=== PATIENT | male | born 1950 | race Caucasian/White ===

== ENCOUNTER → 2018-01-22 | Outpatient (CLI) | payer MEDICARE ==
[~2018-01-22] MED LIST: ASCO-96 PO; ASPI-496 PO; ATOR-2 PO; CARV12.52 PO; CHOL100012 PO; KRIL1CAP24 PO; LISI-170 PO; OMEP20TA62 PO; OXYB10TA PO; OXYC1TAB7 PO; VITA150T PO
[2018-01-22 09:52] LABS: ALBUMIN 3.6 g/dL (3.4-5.0); ANION GAP 5 mmol/L (5-15); CHLORIDE 108 mmol/L (98-107)
[2018-01-22 09:54] LABS: MICROSCOPIC INDICATED
[2018-01-22 09:55] LABS: ALANINE AMINOTRANSFERASE 21 U/L (12-78); ALKALINE PHOSPHATASE 88 U/L (45-117); BILIRUBIN,TOTAL 0.8 mg/dL (0.2-1.0); TOTAL PROTEIN 7.2 g/dL (6.4-8.2)
== END | disposition home or self-care (01) ==
LOC: STAR 08:31
PROVIDERS: ATTEND Urology
DX: Z01.818 Encounter for other preprocedural examination (principal); C67.9 Malignant neoplasm of bladder, unspecified; I49.3 Ventricular premature depolarization; I21.09 ST elevation (STEMI) myocardial infarction involving other coronary artery of anterior wall
CPT/HCPCS: 36415; 80053; 81001; 87086; 93005

== ENCOUNTER 2018-02-01 12:34 | Observation (INO) | payer MEDICARE ==
[~2018-02-01] VITALS: Ht 172.7 cm; Wt 85.9 kg
[2018-02-01] MEDS ORDERED: LACTATED RINGERS 1,000 ML IV SCH (12:57)
[2018-02-01] MEDS ORDERED: MITOMYCIN INTVESIC SCH (13:30)
[2018-02-01] MEDS ORDERED: SODIUM CHLORIDE 0.9% INTVESIC SCH (13:30)
[2018-02-01] MEDS ORDERED: FENTANYL PF 250 MCG/5ML ONE (14:36)
[2018-02-01] MEDS ORDERED: NEOSTIGMINE 1 MG/ML, 10ML ONE (15:01)
[2018-02-01] MEDS ORDERED: DEXAMETHASONE 4 MG/ML, 1ML ONE (15:01)
[2018-02-01] MEDS ORDERED: SUCCINYLCHOLINE 20 MG/ML, 10ML ONE (15:01)
[2018-02-01] MEDS ORDERED: PROPOFOL 10 MG/ML, 20ML ONE (15:01)
[2018-02-01] MEDS ORDERED: ROCURONIUM 10MG/ML,5ML ONE (15:01)
[2018-02-01] MEDS ORDERED: ONDANSETRON 2MG/ML, 2ML ONE (15:01)
[2018-02-01] MEDS ORDERED: CEFAZOLIN 1,000 MG ONE (15:01)
[2018-02-01] MEDS ORDERED: GLYCOPYRROLATE 0.2MG/1ML, 5ML ONE (15:01)
[2018-02-01] MEDS ORDERED: FENTANYL PF 100 MCG/2ML IV PRN (17:00)
[2018-02-01] MEDS ORDERED: LABETALOL 5MG/ML, 20ML IV PRN (17:00)
[2018-02-01] MEDS ORDERED: ACETAMINOPHEN 325 MG TABLET PO PRN (17:00)
[2018-02-01] MEDS ORDERED: MORPHINE SULFATE 4 MG/ML, 1ML IVPush PRN (17:00)
[2018-02-01] MEDS ORDERED: PROMETHAZINE 25 MG SUPP PR PRN (17:00)
[2018-02-01] MEDS ORDERED: PROMETHAZINE 25 MG/ML, 1ML IV PRN (17:00)
[2018-02-01] MEDS ORDERED: ONDANSETRON ODT 8 MG PO PRN (17:00)
[2018-02-01] MEDS ORDERED: ONDANSETRON 2MG/ML, 2ML IV PRN (17:00)
[2018-02-01] MEDS ORDERED: HYDROmorphone 1 MG/ML, 1ML IV PRN (17:00)
[2018-02-01] MEDS ORDERED: OXYcodone 5 MG/5 ML ORAL.SOL UDC PO PRN (17:00)
[2018-02-01] MEDS ORDERED: ONDANSETRON 2MG/ML, 2ML IVPush PRN (18:00)
[2018-02-01] MEDS ORDERED: OPIUM/BELLADONNA SUPP.RECT 16.2-30 MG PR PRN (18:00)
[2018-02-01] MEDS ORDERED: OXYcodone/APAP 5/325MG TABLET PO PRN (18:00)
[2018-02-01] MEDS ORDERED: OXYcodone 5 MG/5 ML ORAL.SOL UDC ONE (19:01)
[2018-02-01] MEDS ORDERED: CIPROFLOXACIN/PMX 400MG/200ML 200 ML IVPB SCH (20:00)
[2018-02-01 21:00] VITALS: BP 126/83
[2018-02-01] MEDS ORDERED: ATORVASTATIN 80 MG TABLET PO SCH (21:00)
[2018-02-01] MEDS: CARVEDILOL 12.5 MG TABLET PO SCH (21:13)
[2018-02-01] MEDS: POTASSIUM CHLORIDE 20 MEQ in D5%-0.9% NACL 1,000 ML IV SCH (21:13)
[2018-02-02] VITALS: BP 119/77
[2018-02-02 04:12] VITALS: BP 112/73
[2018-02-02 05:06] LABS: ANION GAP 6 mmol/L (5-15); CALCIUM 8.4 mg/dL (8.5-10.1); CHLORIDE 107 mmol/L (98-107); CREATININE 1.09 mg/dL (0.7-1.3)
[2018-02-02] MEDS: CARVEDILOL 12.5 MG TABLET PO SCH (05:56)
[2018-02-02] MEDS ORDERED: OMEPRAZOLE 20 MG CAPSULE.DR PO SCH (07:30)
[2018-02-02] MEDS: POTASSIUM CHLORIDE 20 MEQ in D5%-0.9% NACL 1,000 ML IV SCH (07:45)
[2018-02-02 07:49] VITALS: BP 94/63
[2018-02-02] MEDS ORDERED: OXYBUTYNIN CHLORIDE 5 MG TABLET PO SCH (09:00)
[2018-02-02] MEDS ORDERED: CHOLECALCIFEROL 1,000 UNIT TABLET PO SCH (09:00)
[2018-02-02] MEDS ORDERED: LISINOPRIL 20 MG TABLET PO SCH (09:00)
== END 2018-02-02 11:24 | disposition home or self-care (01) ==
LOC: OUT 12:34 → ORIP 17:45 → 4NOR 19:30
PROVIDERS: ADMIT Urology; ATTEND Urology
DX: C67.8 Malignant neoplasm of overlapping sites of bladder (principal); E78.00 Pure hypercholesterolemia, unspecified; I25.10 Atherosclerotic heart disease of native coronary artery without angina pectoris
CPT/HCPCS: 36415; 52240; 80048; 85018; 88307; 96365; G0378; J0330; J0690; J0744; J1100; J2405; J2704; J2710; J3010; J3480; J3490; J7042; J7120

== ENCOUNTER → 2018-05-19 | Outpatient (CLI) | payer MEDICARE ==
[~2018-05-19] MED LIST changes: +LISI-167 PO; +SPIR25TA5 PO; +TAMS-11 PO; +VITA1TAB19 PO
[2018-05-19 11:07] LABS: MICROSCOPIC AUTO
[2018-05-19 11:19] LABS: ALBUMIN 3.9 g/dL (3.4-5.0); ANION GAP 6 mmol/L (5-15); CALCIUM 9.7 mg/dL (8.5-10.1); CHLORIDE 105 mmol/L (98-107)
[2018-05-19 11:25] LABS: ALANINE AMINOTRANSFERASE 27 U/L (12-78); ALKALINE PHOSPHATASE 105 U/L (45-117); BILIRUBIN,TOTAL 0.7 mg/dL (0.2-1.0); CREATININE 1.08 mg/dL (0.7-1.3); TOTAL PROTEIN 7.6 g/dL (6.4-8.2)
== END | disposition home or self-care (01) ==
LOC: STAR 09:54
PROVIDERS: ATTEND Urology
DX: Z01.818 Encounter for other preprocedural examination (principal); C67.9 Malignant neoplasm of bladder, unspecified; I25.2 Old myocardial infarction
CPT/HCPCS: 36415; 80053; 81001; 87077; 87086; 87186; 93005

== ENCOUNTER 2018-05-27 06:08 | Day surgery (SDC) | payer MEDICARE ==
[~2018-05-27] VITALS: Ht 172.7 cm; Wt 78.2 kg
[2018-05-27] MEDS ORDERED: LACTATED RINGERS 1,000 ML IV SCH (06:56)
[2018-05-27 07:06] VITALS: BP 112/65
[2018-05-27] MEDS ORDERED: ACETAMINOPHEN 325 MG TABLET PO PRN (09:00)
[2018-05-27] MEDS ORDERED: FENTANYL PF 100 MCG/2ML IV PRN (09:00)
[2018-05-27] MEDS ORDERED: hydrALAzine 20 MG/ML, 1ML IV PRN (09:00)
[2018-05-27] MEDS ORDERED: PROMETHAZINE 25 MG/ML, 1ML IV PRN (09:00)
[2018-05-27] MEDS ORDERED: ONDANSETRON ODT 8 MG PO PRN (09:00)
[2018-05-27] MEDS ORDERED: PROMETHAZINE 25 MG SUPP PR PRN (09:00)
[2018-05-27] MEDS ORDERED: MORPHINE SULFATE 4 MG/ML, 1ML IVPush PRN (09:00)
[2018-05-27] MEDS ORDERED: LABETALOL 5MG/ML, 20ML IV PRN (09:00)
[2018-05-27] MEDS ORDERED: PROMETHAZINE 12.5 MG SUPP PR PRN (09:00)
[2018-05-27] MEDS ORDERED: OXYcodone 5 MG/5 ML ORAL.SOL UDC PO PRN (09:00)
[2018-05-27] MEDS ORDERED: MEPERIDINE/PF 25MG/0.5ML IVPush PRN (09:00)
[2018-05-27] MEDS ORDERED: HYDROmorphone 2 MG/ML, 1ML IVPush PRN (09:00)
[2018-05-27] MEDS ORDERED: PROMETHAZINE 25 MG/ML, 1ML IM PRN ×2 (09:00)
[2018-05-27] MEDS ORDERED: ONDANSETRON 2MG/ML, 2ML IV PRN (09:00)
[2018-05-27] MEDS ORDERED: CIPROFLOXACIN 400MG/200ML PMX ONE (09:02)
[2018-05-27] MEDS ORDERED: FENTANYL PF 250 MCG/5ML ONE (09:03)
[2018-05-27] MEDS ORDERED: MIDAZOLAM 1 MG/ML, 2ML ONE (09:03)
[2018-05-27] MEDS ORDERED: CEFAZOLIN 1,000 MG ONE (09:04)
[2018-05-27] MEDS ORDERED: PROPOFOL 10 MG/ML, 20ML ONE (09:04)
[2018-05-27] MEDS ORDERED: GLYCOPYRROLATE 0.2MG/1ML, 5ML ONE (09:04)
[2018-05-27] MEDS ORDERED: NEOSTIGMINE 1 MG/ML, 10ML ONE (09:04)
[2018-05-27] MEDS ORDERED: ROCURONIUM 10MG/ML,5ML ONE (09:04)
[2018-05-27] MEDS ORDERED: OXYcodone/APAP 5/325MG TABLET PO PRN (10:00)
== END 2018-05-27 12:30 | disposition home or self-care (01) ==
LOC: OUT 06:08
PROVIDERS: ATTEND Urology
DX: C67.9 Malignant neoplasm of bladder, unspecified (principal); E78.00 Pure hypercholesterolemia, unspecified; Z87.891 Personal history of nicotine dependence; Z98.890 Other specified postprocedural states; Z98.61 Coronary angioplasty status; Z79.899 Other long term (current) drug therapy
CPT/HCPCS: 52235; 88305; J0690; J0744; J2250; J2704; J2710; J3010; J3490